=== PATIENT | male | born 1995 | race Caucasian/White ===

== ENCOUNTER 2022-06-18 18:56 | Emergency (ER) | payer OTHER ==
[~2022-06-18] VITALS: Ht 182.9 cm; Wt 98.9 kg
== END 2022-06-18 21:35 | disposition home or self-care (01) ==
LOC: ED 18:56
DX: S27.321A Contusion of lung, unilateral, initial encounter (principal); W22.8XXA Striking against or struck by other objects, initial encounter
CPT/HCPCS: 71250; 99283-25